=== PATIENT | female | born 2000 ===

== ENCOUNTER 2022-08-10 12:03 | Emergency (ER) | payer MEDICAID, SELFPAY ==
--- NOTE | ~2022-08-10 | XR_ITS ---
EXAMINATION: XR CHEST CLINICAL INFORMATION: Cough. Fatigue. COMPARISON: None available. TECHNIQUE: 2 views of the chest were obtained. FINDINGS: No significant abnormality is noted involving the heart, lungs, mediastinum, bony thorax or soft tissues. XR/XR chest 2V IMPRESSION: Unremarkable examination.
--- NOTE | 2022-08-10 12:30 | ED_ITS ---
HPI - General Adult General Chief complaint: Upper Respiratory Symptoms Stated complaint: Not feeling well Time Seen by Provider: 08/10/22 13:36 Source: patient Mode of arrival: ambulatory Limitations: other ( Psychiatric Mental Health Nurse use.) History of Present Illness HPI narrative: 21-year-old female presents with nausea, fatigue, malaise, body aches and pains subjective fevers and chills, intermittent diffuse headache not present at this time for the past 3-4 days not improving, patient is wondering if she is and that is why she decided to come into the emergency department. Patient denies chest pain, shortness of breath, headache, vision changes, dizziness, nausea, vomiting, abdominal pain at this time. Related Data Allergies Allergy/AdvReac Type Severity Reaction Status Date / Time No Known Allergies Allergy Verified 08/10/22 12:39 Review of Systems Review of Systems: Constitutional : No Weight loss, + Fever, + Chills, + Fatigue, + Malaise ENT/Mouth : No sore throat, No Rhinorrhea Eyes: No Eye Pain, No Swelling, No Redness Cardiovascular : No Chest Pain, No SOB, No Dyspnea on Exertion, No Orthopnea, No Edema, No Palpitations Respiratory : No Cough, No Sputum, No Wheezing Gastrointestinal : + Nausea, No Vomiting, No Diarrhea, No Constipation, No abdominal Pain, No Hematochezia, No Melena Genitourinary : No Dysuria, No Urinary Frequency, No Hematuria, Musculoskeletal : No joint pain, No Myalgias, No Joint Swelling Skin : No Skin Lesions, No rash Neuro : No Weakness, No Numbness, No Dizziness, No Headache Psych : No Anxiety/Panic, No Depression All other systems reviewed and are negative Yes all other systems are reviewed and are negative [facility] Past Medical History Attestation statement: The following information was validated with the patient. Source: old records reviewed and nursing notes reviewed Physical Exam ED Vital Signs: Vital Signs - 24 hr 08/10/22 12:32 Temperature 97.6 F Pulse Rate 92 Respiratory Rate 18 Blood Pressure 120/72 Pulse Oximetry 100 Oxygen Delivery Method Room Air BMI result Body Mass Index 20.5 vss Appearance: Alert.? Oriented X3.? No acute distress.? Head: Normocephalic, atraumatic, no step-offs or deformities Eyes: Pupils equal, round and reactive to light.? ENT: Pharynx normal.? Uvula midline, no exudate, no abscess, speaking full sentences controlling secretions well CVS: Normal heart rate and rhythm.? Pulses normal.? Respiratory: No respiratory distress.? Breath sounds normal.? Abdomen: Soft and nontender.? negative Britton's, Rovsing , McBurney's point Skin: Skin warm and dry.? Normal skin color.? Normal skin turgor.? Extremities: No lower extremity edema.? No calf ttp. 5/5 strength to bilateral upper and lower extremities Neuro: Oriented X 3.? No motor deficit.? No sensory deficit. 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 Ur preg, COVID/FLU, CXR ordered Full HPI, ROS and PE to be performed by primary ED provider. Reevaluation(s) Reevaluation #1: influenza positive likely why patient is experiencing the symptoms. Patient well-appearing. Not a candidate for Tamiflu symptoms have been going on for 3-4 days. Educated on ibuprofen and Tylenol use with carpet or rug layer helper. Patient verbalizes understanding. negative. Educated patient on diagnosis and treatment plan, answered all question, patient verbalizes understanding. At this time patient will be discharged home, advised to return with new or worsening symptoms. Educated on worrisome signs and symptoms and when to return. At this time I feel comfortable discharge home. Time: 13:53 Medical Decision Making Medical Decision Making [facility] Narrative: 21-year-old female presents with fatigue, malaise, nausea, headache, myalgias, subjective fevers and chills for the past 3-4 days not improving. Concern she may be . Physical exam benign. Likely viral illness. Unlikely PE, pneumonia, ACS, meningitis, encephalitis, stroke, posterior stroke. Will rule out and viral illnesses. Plan viral testing, x-ray, urine Differential Diagnosis Differential Diagnoses: The differential diagnosis associated with the presentation includes Likely viral illness. Unlikely PE, pneumonia, ACS, meningitis, encephalitis, stroke, posterior stroke. Will rule out and viral illnesses. Lab Data [facility] Lab Attestation statement: I reviewed the patient's lab results. Labs: Lab Results 08/10/22 08/10/22 08/10/22 Range/Units 12:51 12:51 12:51 Urine Test NEGATIVE (NEGATIVE) COVID-19 ([facility]) Negative (Negative) COVID-19 Clin Com See Note Influenza Type A ([facility]) Negative (Negative) Influenza Type B ([facility]) Positive A (Negative) Influenza A & B Note See Note Independent Interpretation I performed an independent interpretation of an: Plain X-Ray Radiology Impression Discussion of test interpretation with radiology: I have reviewed the radiologist's reading. Core Measures AMI core measures followed: Yes Measure exclusions: not indicated Critical Care Time Critical Care Time Critical Care Time: No Discharge Plan Discharge Clinical Impression: Influenza Patient Disposition: Home, Self-Care Instructions: Influenza (ED) Additional Instructions: Take your medications as prescribed. If you were prescribed antibiotics today, it is important that you take your medication to their entirety, do not skip any doses, do not finish them early. Follow-up with your primary care provider this week. Return to the emergency department with new or worsening symptoms. Such as fevers, chills, chest pain, shortness of breath, nausea, vomiting, dizziness, headache, vision changes, lethargy In case of emergency call 911 you can take ibuprofen every 6 hours, Tylenol every 4 as needed for fevers, chills, pain or discomfort. Drink plenty of fluids. Supportive measures encouraged. [place] jameel zako tl ulivyoagizwa. [place] umeagizwa antibiotics paula, ni muhimu kwamba uchukue jameel yako kwa ukamilifu, usiruke dozi yoyote, usiwamalize mapema. Fuatilia na mtoa huduma wako wa msingi wiki hii. Collins kwa idara ya dharura na dalili mpya au mbaya chiki. Tl vile john, baridi, maumiv[place] ya kifua, [place] wa kupumua, kichefuchefu, [place], kizunguzungu, maumivu ya kichwa, mabadiliko ya maono, uchovu. Nichole torres ya dharura piga simu 911 unaweza [place] ibuprofen john baada ya gely 6, Tylenol john 4 inavyohitajika kwa john, baridi, maumivu au usumbufu. Chelsea eric. Hazel caceres. Referrals: Physician,None [Primary Care Provider] - 2 days
[2022-08-10 12:32] VITALS: BP 120/72; PULSE 92; RESP 18; TEMP 36.4; O2SAT 100; BMI 20.5
--- NOTE | 2022-08-10 12:53 | MHC.EDTECH ---
Urine and colvid/flu swab collected and sent
[2022-08-10 13:15] LABS: UPreg QC Valid YES; Urine Pregnancy NEGATIVE (NEGATIVE)
[2022-08-10 13:20] LABS: COVID-19 Test Negative (Negative); IDNOW Serial# BCCEAD1C
[2022-08-10 13:25] LABS: IDNOW Serial# 9DB6401D; Influenza A Negative (Negative); Influenza B2 Positive (Negative)
== END 2022-08-10 14:09 | disposition home or self-care (01) ==
LOC: HO.ED 14:08
PROVIDERS: Physician Assistant; Emergency Provider Emergency Medicine
DX: J10.1 Influenza due to other identified influenza virus with other respiratory manifestations (principal); R11.0 Nausea; R53.83 Other fatigue; R53.81 Other malaise; R05.9 Cough, unspecified; R52 Pain, unspecified; Z20.822 Contact with and (suspected) exposure to COVID-19
CPT/HCPCS: 71046; 81025; 87502; 87635; 99283